=== PATIENT | male | born 1985 | race Caucasian/White ===

== ENCOUNTER 2024-02-04 12:36 | Emergency (ER) | payer SELFPAY | END 2024-02-04 12:50 | disposition left against medical advice (07) | LOC: EXPBETH 12:42 | PROVIDERS: Emergency Provider Nurse Practitioner Family | DX: Z53.21 Procedure and treatment not carried out due to patient leaving prior to being seen by health care provider (principal) | CPT/HCPCS: 99199 ==

== ENCOUNTER 2024-08-27 10:13 | Emergency (ER) | payer SELFPAY ==
[2024-08-27 10:21] VITALS: BP 119/81; PULSE 97; RESP 18; TEMP 36.6; O2SAT 97
--- NOTE | 2024-08-27 10:47 | ED_ITS ---
HPI - Extremity Problem General Chief complaint: Extremity Problem,Nontraumatic Stated complaint: Left Hand/Arm Pain Time Seen by Provider: 08/27/24 10:47 Source: patient Mode of arrival: ambulatory Limitations: no limitations History of Present Illness HPI Narrative: 38 y/o male presented for c/o pain to 3 areas of the left arm x2 days. States pain is severe, and described as 'pinch and burn.' It started after he pressed on the palm of the left hand, now has pain to that site, as well as upper forearm and bicep. Pt states he has chronic pain and needs to establish with a pcp. Pt has attempted to pop his neck and back to help the pain, without improvement. Denies discoloration, swelling,numbness tingling or weakness. Denies known injury. Pt states he cannot tolerate ibuprofen or Tylenol due to allergic reactions resulting in fevers and increased saliva production. He is able to take Midol. Related Data Home Medications ?Medication ?Instructions ?Recorded ?Confirmed ?Last Taken ?Type No Home Medications 08/27/24 08/27/24 Unknown History Allergies Allergy/AdvReac Type Severity Reaction Status Date / Time acetaminophen (From Tylenol) Allergy Severe Difficulty Verified 08/27/24 10:45 Breathing NSAIDS (Non-Steroidal Allergy Severe Anaphylaxis Verified 08/27/24 10:45 Anti-Inflamma Review of Systems Review of Systems: CONSTITUTIONAL: Denies body aches, fever, chills CARDIOVASCULAR: Denies chest pain, palpitations, or edema. RESPIRATORY: Denies cough or dyspnea. GASTROINTESTINAL: Denies abdominal pain, nausea, vomiting, or diarrhea. SKIN: Denies rash, itching, or wounds. MUSCULOSKELETAL: per HPI NEUROLOGIC: Denies headache, numbness, tingling, or weakness. All systems reviewed & are unremarkable except as noted in HPI and below PMFSH Comments At time of signature, I have reviewed and agree with nursing past medical, surgical, social and family history unless otherwise noted. Please see nursing chart for further information. There is no relevant family history pertinent to the presenting complaint Exam Narrative: GENERAL: Well-appearing NECK: nontender, full ROM CHEST: Speaks in full sentences. No respiratory distress. HEART: Regular rate and rhythm. Normal and equal peripheral pulses. EXTREMITIES: Left upper extremity has normal strength and sensation, normal range of motion. No swelling, erythema, warmth, or ecchymosis, No point tenderness. No open wounds, or obvious deformity; alignment normal, pulse palpable and equal bilaterally, skin warm, dry, pink. Capillary refill less than 3 seconds. SKIN: Warm, dry, no rash. NEURO: Alert and oriented x3. PSYCH: Normal mood and affect Course Course Emergency Course: Patient is aware of diagnosis, understands and agrees to treatment plan. Anticipatory guidance given. Patient agrees to follow-up as directed and is aware of reasons to seek care at the emergency department. Portions of this record may have been created with voice recognition software Level of Care: Express Care Visit Vital Signs Vital signs: Vital Signs Temperature 98 F 08/27/24 10:21 Pulse Rate 97 08/27/24 10:21 Respiratory Rate 18 08/27/24 10:21 Blood Pressure 119/81 08/27/24 10:21 Pulse Oximetry 97 08/27/24 10:21 Oxygen Delivery Room Air 08/27/24 10:21 Temperature 98 F 08/27/24 10:21 Pulse Rate 97 08/27/24 10:21 Respiratory Rate 18 08/27/24 10:21 Blood Pressure 119/81 08/27/24 10:21 Pulse Oximetry 97 08/27/24 10:21 Oxygen Delivery Room Air 08/27/24 10:21 Reviewed MDM - Extremity (Nontraumatic) MDM Narrative Medical decision making narrative: discussed physical exam findings with pt. Advised steroid and muscle relaxer at this time, advised if he needs US or other imaging it would be through PCP or ER. PT elected to leave prior to dc paperwork. States if you are not going to give me any of the tests I need to figure out what is wrong I will just leave. States he does not want to be billed for the visit because he did not know we did not do those tests. During encounter he was advised to establish with pcp. Differential Diagnosis Differential diagnosis: Likely herpes zoster, gout, cellulitis, superficial thrombophlebitis, deep venous thrombosis of upper extremity and other Discharge Plan Discharge Clinical Impression: Arm pain, left Patient Disposition: Home, Self-Care Condition: Stable Instructions: Arm Pain (ED) Additional Instructions: Rest. Avoid pushing, pulling, lifting or anything that worsens the symptoms Alternate ice/heat to the site. Lidocaine or salon pas pain patch or use pain cream like icy/hot or biofreeze. Patient Language: [place] Prescriptions: No Action No Home Medications Follow-up/Referrals: PHYSICIAN,IN CLASS SPECIAL EDUCATION TEACHER [Primary Care Provider] - Time of Disposition: 10:57
== END 2024-08-27 10:57 | disposition home or self-care (01) ==
PROVIDERS: Emergency Provider Nurse Practitioner Family
DX: M79.602 Pain in left arm (principal)
CPT/HCPCS: 99202; G0463